=== PATIENT | female | born 1980 | race Two or more races ===

== ENCOUNTER → 2020-09-18 | Day surgery (SDC) | payer OTHER ==
[2020-09-18] VITALS (12 sets, daily range): BP systolic 106–144; BP diastolic 52–89
[~2020-09-18] VITALS: Ht 160 cm; Wt 102.1 kg
[~2020-09-18] MED LIST: ALBUTEROL2.5 MG/3 M INH; D5 1/2NS 1,000 ML IV SCH; Duramorph PF 5mg/10ml amp ONE; FLONASE ALLERG9.9 ML NS; HYDROcodone/Acetamin 5/325 tab ONE; HYDROcodone/Acetamin 5/325 tab ORAL PRN; HYDROmorphone 1mg/ml Carpuject SUBQ PRN; Kenalog-40 1ml Vial ONE; Ketorolac 30mg Inj IV PRN; Ketorolac 30mg Inj ONE; LISINOPRIL10 MG ORAL; LORATADINE10 M1 PO; LR 1000ml 1,000 ML IVLG SCH; Lidocaine 1% MPF 10mg/ml 5ml ONE; Lidocaine 1%/ 10mg/ml/EPI 0.01mg/ml 20ml INJ ONE; METFORMIN HCL1000 M2 ORAL; Meperidine 25mg/1ml Inj (FOR RIGORS ONLY) IV PRN; Metoclopramide 10mg/2ml Inj IVP PRN; Midazolam 2mg/2ml Inj IVP ONE; Midazolam 2mg/2ml Inj ONE; NESINA25 MG PO; NS Irrig 3000ml IRRIG ONE; PANTOPRAZOLE SO40 MG ORAL; TransDerm Scop 1.5mg/72HR Patch TDERMAL ONE; Tylenol #3 tab (300mg/30mg) ORAL PRN; amlodipine PO; ceFAZolin 1gm IVPB IVPB ONE; celeBREX 200mg Cap **SURGERY PATIENTS ONLY ORAL ONE; fentaNYL 100 mcg/2 mL IV ONE; oxyCONTIN 20mg tab ORAL ONE
--- NOTE | 2020-09-18 07:29 | Anethesia Preoperative Eval ---
Anesthesia Pre-op PMH/ROS General Date of Evaluation: Sep 18, 2020 Time of Evaluation: 07:25 Anesthesiologist: Rohith ASA Score: ASA 3 Mallampati Score Class I : Soft palate, uvula, fauces, pillars visible Class II: Soft palate, uvula, fauces visible Class III: Soft palate, base of uvula visible Class IV: Only hard plate visible Mallampati Classification: Class III Surgeon: Roderick Diagnosis: L knee pain Surgical Procedure: L knee scope Anesthesia History: PONV Family History: no anesthesia problems Allergies: Coded Allergies: No Known Allergies (Unverified , 09/16/20) Medications: see eMAR Patient NPO?: Yes Past Medical History Cardiovascular: Reports: HTN; Denies: CAD, [place], valve dz, arrhythmia, other Pulmonary: Reports: SHAN; Denies: asthma, COPD, other Gastrointestinal/Genitourinary: Reports: GERD; Denies: CRI, ESRD, other Neurologic/Psychiatric: Reports: depression/anxiety, other - chronic pain; Denies: dementia, CVA, TIA Endocrine: Reports: DM; Denies: hypothyroidism, steroids, other HEENT: Denies: cataract (L), cataract (R), glaucoma, [place] (L), [place] (R), other Hematology/Immune: Denies: anemia, DVT, bleeding disorder, other Musculoskeletal/Integumentary: Reports: OA; Denies: RA, DJD, DDD, edema, other Other: obesity PMH Narrative: as above PSxH Narrative: cholecystectomy, ankle scope Anesthesia Pre-op Phys. Exam Physician Exam Last Vital Signs Date Time Temp Pulse Resp B/P (MAP) Pulse Ox O2 Delivery O2 Flow Rate FiO2 09/18/20 05:39 Room Air 09/18/20 05:39 97.8 84 18 139/87 98 Constitutional: NAD Neurologic: CN 2-12 intact Cardiovascular: RRR, no M/R/G Respiratory: CTA Gastrointestinal: other - obesity Airway Exam Mallampati Score: Class III MO: limited Neck: short ROM: limited Teeth: missing Dentures: no upper, no lower Anesthesia Pre-op A/P Labs see chart Urine Test Test 09/18/20 05:20 Urine HCG, Qualitative Negative (NEGATIVE) Risk Assessment & Plan Assessment: ASA 3 Plan: GA with LMA PONV prevention Status Change Before Surgery: No Pre-Antibiotics Drugr Given Within 1 Hr of Incision: Yes Time Given: 08:20 Siddhartha Newberry MD Sep 18, 2020 07:29
[2020-09-18] MEDS: Bupivacaine 0.25% Inj 30ml INJ ONE ×2 (07:48→08:20)
--- NOTE | 2020-09-18 07:49 | Pre-Procedure Note/Attestation ---
Pre-Procedure Note/Attestation Complete Prior to Procedure Planned Procedure: left Procedure Narrative: knee arthroscopy, possible synovectomy, chondroplasty Indications for Procedure Pre-Operative Diagnosis: left knee internal derangement Attestation I attest that I discussed the nature of the procedure; its benefits; risks and complications; and alternatives (and the risks and benefits of such alternatives), prior to the procedure, with the patient (or the patient's legal employment representative). I attest that, if there was a reasonable possibility of needing a blood transfusion, the patient (or the patient's legal employment representative) was given the [facility] standardized written summary, pursuant to the [place] Blood Safety Act ([place] Health and Safety Code # 1645, as amended). I attest that I re-evaluated the patient just prior to the surgery and that there has been no change in the patient's H&P, except as documented below: Odilon Vaughn MD Sep 18, 2020 07:49
--- NOTE | 2020-09-18 07:50 | Operative Note - PDOC ---
Operative Note Operative Note Pre-op Diagnosis: left knee internal derangement Procedure: see op report Post-op Diagnosis: same as pre-op plus Operative Findings: consistent w/pre-op dx studies Anesthesia: regional Specimen: none Complications: none Condition: stable Estimated Blood Loss: none Implant(s) used?: No Odilon Vaughn MD Sep 18, 2020 07:50
[2020-09-18] MEDS: Midazolam 2mg/2ml Inj IVP PRN ×2 (08:46→09:34)
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
[2020-09-18] MEDS: DiphenhydrAMINE 50mg/ml Inj IVP PRN ×2 (09:04→09:20)
--- NOTE | 2020-09-18 09:47 | Immediate Post-Op Evaluation ---
Immediate Post-Op Evalulation Immediate Post-Op Evalulation Procedure: L knee arthroscopy meniscectomy Date of Evaluation: Sep 18, 2020 Time of Evaluation: 08:50 IV Fluids: 500 Blood Products: none Estimated Blood Loss: min Urinary Output: none Blood Pressure Systolic: 142 Blood Pressure Diastolic: 68 Pulse Rate: 86 Respiratory Rate: 22 O2 Sat by Pulse Oximetry: 98 Temperature (Fahrenheit): 97.6 Pain Score (1-10): 3 Nausea: No Vomiting: No Complications none Patient Status: reacts, patent, none Hydration Status: adequate Siddhartha Newberry MD Sep 18, 2020 09:47
--- NOTE | 2020-09-18 09:49 | 48 Hour Post Anesthesia Eval ---
Post Anesthesia Evaluation Procedure: L knee arthroscopy meniscectomy Date of Evaluation: Sep 18, 2020 Time of Evaluation: 09:47 Blood Pressure Systolic: 132 0: 74 Pulse Rate: 72 Respiratory Rate: 22 Temperature (Fahrenheit): 97.6 O2 Sat by Pulse Oximetry: 98 Airway: patent Nausea: No Vomiting: No Pain Intensity: 2 Hydration Status: adequate Cardiopulmonary Status: stable Mental Status/LOC: patient returned to baseline Follow-up Care/Observations: n/a Post-Anesthesia Complications: none Follow-up care needed: ready to discharge Siddhartha Newberry MD Sep 18, 2020 09:49
== END | disposition home or self-care (01) ==
LOC: SUR 05:11
DX: M67.262 Synovial hypertrophy, not elsewhere classified, left lower leg (principal); I10 Essential (primary) hypertension; K21.9 Gastro-esophageal reflux disease without esophagitis; F32.9 Major depressive disorder, single episode, unspecified; F41.9 Anxiety disorder, unspecified; E11.9 Type 2 diabetes mellitus without complications; M19.90 Unspecified osteoarthritis, unspecified site; Z90.49 Acquired absence of other specified parts of digestive tract; E66.9 Obesity, unspecified; Z68.39 Body mass index [BMI] 39.0-39.9, adult
CPT/HCPCS: 29876; 29999; 81025; J0690; J1100; J1200; J1885; J2250; J2405; J2704; J3010; J3301; J3490; U0004; J2180